=== PATIENT | female | born 1955 | race Caucasian/White ===

== ENCOUNTER 2016-08-04 08:18 | Inpatient (IN) | payer OTHER ==
[~2016-08-04 08:18] MED LIST: BUPIVACAINE 0.5% 30 ML SDV ONE; ceFAZolin 2 GM/DEXTROSE 100 ML IV ONE
[2016-08-04] MEDS ORDERED: LIDOCAINE 1% 5 ML SDV ONE (09:04)
[2016-08-04] MEDS ORDERED: CEFAZOLIN 2 GM/DEXTROSE/100 ML BAG IV ONE (09:05)
[2016-08-04] MEDS ORDERED: LIDOCAINE 1% 5 ML SDV ID PRN (09:14)
[2016-08-04] MEDS ORDERED: LR 1,000 ML IV ONE (09:14)
[2016-08-04] MEDS ORDERED: PROPOFOL/EMULSION 500 MG/50 ML BOTTLE IV ONE ×2 (09:36→12:15)
[2016-08-04] MEDS ORDERED: fentaNYL 250 MCG/5 ML INJ ONE (09:36)
[2016-08-04] MEDS ORDERED: ROCURONIUM 50 MG/5 ML VIAL ONE ×3 (09:38→13:17)
[2016-08-04] MEDS ORDERED: MIDAZOLAM 2 MG/2 ML VIAL ONE ×3 (10:11→12:31)
[2016-08-04] MEDS ORDERED: SKIN ADHESIVE (DERMABOND) 1 EACH TP ONE ×2 (10:30→12:47)
--- NOTE | 2016-08-04 12:49 | POSTOPPROG ---
Post Op Note Date of Operation: 08/04/16 Surgeon: Daisy Brooks Intelligence Chief: carlita Anesthesiologist: coleman Anesthesia: GET(General Endotracheal) Pre-op Diagnosis: ILD Post-op Diagnosis: same Indication: 61yo F with interstitial lung dz Procedure: R VATS wedge bx RUL Findings: none unusual Inf/Abcess present in the surg proc area at time of surgery?: No Depth: Organ Space EBL: Minimal Complications: none immediately postop Drains: Other (pleuravac) Specimen(s): lung for micro and path
[2016-08-04] MEDS ORDERED: diphenhydrAMINE 25 MG CAP PO PRN ×2 (12:51→14:15)
[2016-08-04] MEDS ORDERED: ONDANSETRON DISINTEGRATING 4 MG TAB PO PRN (12:51)
[2016-08-04] MEDS ORDERED: ONDANSETRON 4 MG/2 ML VIAL IVP PRN ×2 (12:51→14:15)
[2016-08-04] MEDS ORDERED: ACETAMINOPHEN 325 MG TAB PO PRN (12:51)
[2016-08-04] MEDS ORDERED: BUPIVACAINE/EPI 0.25% 30 ML SDV ONE (12:51)
[2016-08-04] MEDS ORDERED: BUPIVACAINE 0.25% 30 ML SDV ONE (12:52)
[2016-08-04] MEDS ORDERED: METHOCARBAMOL 750 MG TAB PO PRN (12:52)
[2016-08-04] MEDS ORDERED: ONDANSETRON 4 MG/2 ML VIAL ONE ×4 (12:52→13:17)
[2016-08-04] MEDS ORDERED: SUGAMMADEX SODIUM 200 MG/2 ML VIAL IVP ONE ×2 (12:53→13:17)
[2016-08-04] MEDS ORDERED: BUPIVACAINE/DEXTROSE 7.5MG SPINAL AMP SP ONE (12:58)
[2016-08-04] MEDS ORDERED: NON-FORMULARY NEW DRUG (Estradiol [Vagifem] 10 MCG) VG SCH (13:00)
[2016-08-04] MEDS ORDERED: BUPIVACAINE 0.5% 30 ML SDV ONE (13:00)
[2016-08-04] MEDS ORDERED: NS 1,000 ML IV SCH (13:00)
[2016-08-04] MEDS ORDERED: DEXAMETHASONE 4 MG/ML VIAL ONE ×3 (13:17)
[2016-08-04] MEDS ORDERED: fentaNYL 100 MCG/2 ML INJ ONE (13:40)
[2016-08-04] MEDS ORDERED: MEPERIDINE 25 MG/ML SYR ONE (13:45)
[2016-08-04] MEDS ORDERED: HYDROmorph 10MCG/ML&BUP 0.1% in 100ML NS EP SCH (14:15)
[2016-08-04] MEDS ORDERED: NALOXONE HCL 0.4 MG/ML INJ IVP PRN (14:15)
[2016-08-04] MEDS ORDERED: NARCOTIC DRIP BAG-TOTAL ALL TYPES EP PRN (14:15)
[2016-08-04] MEDS: LOSARTAN POTASSIUM 50 MG TAB PO SCH (17:37)
[2016-08-04] MEDS ORDERED: NON-FORMULARY NEW DRUG (Losartan Potassium [Cozaar] 100 MG) PO SCH (18:00)
[2016-08-04] MEDS ORDERED: CEPACOL LOZENGE PO PRN (18:25)
[2016-08-04] MEDS: HYDROCODONE/APAP 5/325 TAB PO PRN (19:48)
[2016-08-04] MEDS: ASPIRIN EC 81 MG TAB PO SCH (20:55)
[2016-08-04] MEDS: ZOLPIDEM TARTRATE 5 MG TAB PO SCH (20:55)
[2016-08-04] MEDS ORDERED: NON-FORMULARY NEW DRUG (Zolpidem Tartrate [Ambien 10 Mg] 10 MG) PO SCH (21:00)
[2016-08-05 05:04] LABS: % IMMATURE GRANULYOCYTES 0.3 % (0.0-1.1); ABSOLUTE IMMATURE GRANULOCYTES 0.03 10^3/uL (0.00-0.10); ADD DIFF? NO; ADD MORPH? NO; ADD SCAN? NO; ATYPICAL LYMPHOCYTE FLAG 0 (0-99); FRAGMENT RBC FLAG 10 (0-99); HEMATOCRIT 37.5 % (38.0-47.0); HEMOGLOBIN 12.8 g/dL (12.6-16.3); LEFT SHIFT FLG 0 (0-99); LIPEMIA HEMOLYSIS FLAG 90 (0-99); MEAN CELL HEMOGLOBIN 30.5 pg (27.9-34.1); MEAN CELL HEMOGLOBIN CONCENTR. 34.1 g/dL (32.4-36.7); MEAN CELL VOLUME 89.3 fL (81.5-99.8); MEAN PLATELET VOLUME 10.7 fL (8.7-11.7); PLATELET CLUMPS FLAG 20 (0-99); PLATELET COUNT 240 10^3/uL (150-400); RED CELL DISTRIBUTION WIDTH 12.1 % (11.5-15.2)
[2016-08-05] MEDS: HYDROCODONE/APAP 5/325 TAB PO PRN ×2 (05:07→08:36)
[2016-08-05 05:19] LABS: ANION GAP 9 mEq/L (8-16); CALCIUM 9.1 mg/dL (8.5-10.4); CARBON DIOXIDE 22 mEq/l (22-31); CHLORIDE 107 mEq/L (97-110); CREATININE 0.9 mg/dL (0.6-1.0); GLOMERULAR FILTRATION RATE > 60; GLUCOSE 138 mg/dL (70-100); POTASSIUM 4.8 mEq/L (3.5-5.2); SODIUM 138 mEq/L (134-144)
[2016-08-05] MEDS ORDERED: DC NARCS MISC SCH (09:00)
[2016-08-05] MEDS ORDERED: REGARDING ANTICOAG MISC SCH (09:00)
--- NOTE | 2016-08-05 11:54 | POSTANESTH ---
Post Anesthetic Evaluation Cardiovascular Status: Normal, Stable Respiratory Status: Tx Decrease in SpO2 Level of Consciousness/Mental Status: Can Participate in Eval Pain Control: Adequate, Prn Tx Ordered Nausea/Vomiting Control: Adequate, Prn Tx Ordered Complications Possibly Related to Anesthesia: Other, See Comments (Sore throat improved. Pain increased at 0200 hours. Patient noted epidural gave good pain control. Surgeon recommended epidural removal. Epidural removed intact. Bandaid placed.)
--- NOTE | 2016-08-05 12:14 | SOAPPROG ---
SOAP Progress Note Assessment/Plan: Assessment/Plan POD#1 s/p R VATs Bx - pain has been issue, doesnt appear well controlled on [place], have switched to oxycodone. Epidural removed this AM per Dr Ramirez. - OOBTC, ambulate and wean O2 with aggressive IS and ambulation - CXR shows miniscule ptx, resolving. Will watch - Port and CT sites c/d/i, ok to shower - Anticipate one more day to work on pain control. Hopefully home tomorrow 08/05/16 12:12 Subjective: Feels ok, has pain with movement. Tolerating diet. Objective: Vital Signs Temp Pulse Resp BP Pulse Ox 36.1 C 52 L 18 100/63 95 08/05/16 09:20 08/05/16 09:20 08/05/16 09:20 08/05/16 09:20 08/05/16 09:20 Microbiology 08/04/16 12:38 Gram Stain - Final Lung - Tissue Laboratory Results 08/05/16 04:49 08/05/16 04:49 08/04/16 08/05/16 08/06/16 05:59 05:59 05:59 Intake Total 2300 Output Total 24 Balance 2276 ICD10 Worksheet Patient Problems: Problems Problem Status Onset Interstitial lung disease Acute - ICD10 Problem Qualifiers (1) Interstitial lung disease
[2016-08-05] MEDS: oxyCODONE IR 5 MG TAB PO PRN ×3 (12:36→20:59)
[2016-08-05] MEDS: IBUPROFEN 600 MG TAB PO PRN (12:36)
[2016-08-05] MEDS: LOSARTAN POTASSIUM 50 MG TAB PO SCH (17:44)
[2016-08-05] MEDS: ZOLPIDEM TARTRATE 5 MG TAB PO SCH (20:58)
[2016-08-05] MEDS: ASPIRIN EC 81 MG TAB PO SCH (20:59)
[2016-08-06] MEDS: oxyCODONE IR 5 MG TAB PO PRN ×3 (01:04→08:57)
[2016-08-06] MEDS: IBUPROFEN 600 MG TAB PO PRN (08:56)
[2016-08-06 09:26] VITALS: BP 103/64; PULSE 62; RESP 16; TEMP 98.1; O2SAT 85
--- NOTE | 2016-08-06 09:40 | GDS ---
DISCHARGE DIAGNOSES: 1. Interstitial lung disease. 2. Postoperative pulmonary insufficiency. HOSPITAL COURSE: The patient was admitted on the for her elective procedure. She was taken to the operating room, where she underwent an uneventful video-assisted thoracoscopic wedge biopsy of her right lung. She was subsequently taken to the PACU and then to the general medical floor. She had a chest tube which was discontinued on the day of surgery. A repeat chest film a day later show ed complete resolution of a tiny pneumothorax that was there previously. Her pain was initially wel l controlled with an epidural. This was removed on postoperative day 1. She was transitioned to or al oxycodone. Her diet was advanced to a regular diet which was well tolerated on day of discharge. PHYSICAL EXAM: GENERAL: On day of discharge, she is alert and oriented. LUNGS: Clear. Her chest tube site is covered with a clean dressing. Her operative sites are covered with Dermabond are ian an, dry, and intact. ABDOMEN: Soft and nondistended. EXTREMITIES: Warm and well-perfused. DISCHARGE MEDICATIONS: Please see med rec for full discharge med reconciliation. The new medicine she was given today was oxycodone IR as needed for pain. She was also sent home on oxygen, as she w as unable to successfully wean at time of discharge. DISPOSITION: She will go home. She will follow up with her primary care physician next week to ass ess her continued need for home O2. She will follow up with her operative surgeon, Dr. Brooks, in 7- 10 days for a routine postoperative visit. /[id number]/MODL
== END 2016-08-06 11:36 | disposition home or self-care (01) | DRG 168 ==
LOC: F3E 08:18 → F1N 16:40
PROVIDERS: ADMIT Surgery; ATTEND Surgery
PROC: 0W9940Z Drainage of Right Pleural Cavity with Drainage Device, Percutaneous Endoscopic Approach (ICD-10-PCS; principal; 2016-08-04 11:00)
PROC: 0BBC4ZX Excision of Right Upper Lung Lobe, Percutaneous Endoscopic Approach, Diagnostic (ICD-10-PCS; principal; 2016-08-04 11:00)
DX: J84.9 Interstitial pulmonary disease, unspecified (principal); Z87.891 Personal history of nicotine dependence
CPT/HCPCS: J0690; J1100; J1170; J2250; J2405; J2704; J3010

== ENCOUNTER → 2016-08-15 | Outpatient (CLI) | payer OTHER | LOC: FIMAGING 11:34 | PROVIDERS: ATTEND Surgery | DX: J98.11 Atelectasis (principal); J84.9 Interstitial pulmonary disease, unspecified ==

== ENCOUNTER → 2017-05-28 | Outpatient (CLI) | payer OTHER | LOC: CIMAGING 09:53 | PROVIDERS: ATTEND Internal Medicine | DX: Z12.31 Encounter for screening mammogram for malignant neoplasm of breast (principal); Z80.3 Family history of malignant neoplasm of breast | CPT/HCPCS: G0202 ==

== ENCOUNTER 2017-10-22 07:12 | Day surgery (SDC) | payer OTHER ==
[2017-10-22] MEDS ORDERED: LIDOCAINE 1% 2 ML INJ ID PRN (07:32)
[2017-10-22] MEDS ORDERED: LR 1,000 ML IV ONE (07:32)
--- NOTE | 2017-10-22 08:58 | PDANEPAE ---
ANE History of Present Illness h/o polyps ANE Past Medical History - Cardiovascular History Hx Hypertension: Yes Hx Arrhythmias: No Hx Chest Pain: No Hx Coronary Artery / Peripheral Vascular Disease: No Hx CHF / Valvular Disease: No Hx Palpitations: No Cardiovascular History Comment: HIGH CHOL - Pulmonary History Hx COPD: No Hx Asthma/Reactive Airway Disease: No Hx Recent Upper Respiratory Infection: No Hx Oxygen in Use at Home: No Hx Sleep Apnea: Yes Sleep Apnea Screening Result - Last Documented: Positive Pulmonary History Comment: CAN DO 2 FLTS STAIRS W/O SOB. INTERSTITIAL LUNG DX. CHRONIC COUGH. POS SLEEP APNEA - CPAP TRIAL X 6 MOS - Neurologic History Hx Cerebrovascular Accident: No Hx Seizures: No Hx Dementia: No Neurologic History Comment: LOW BACK PAIN - Endocrine History Hx Diabetes: No - Renal History Hx Renal Disorders: No - Liver History Hx Hepatic Disorders: No - Neurological & Psychiatric Hx Hx Neurological and Psychiatric Disorders: No - Cancer History Hx Cancer: No - Congenital Disorder History Hx Congenital Disorders: No - GI History Hx Gastrointestinal Disorders: Yes Gastrointestinal History Comment: POLYPS REM - Other Health History Other Health History: LUNG SCAN- REC BRONCHOSOPY - Chronic Pain History Chronic Pain: Yes (LOW BACK PAIN & HIP & SHOULDER) - Surgical History Prior Surgeries: CATARACTS RECENT 04/2017. ORAL SURGER. LUNG BIOPSY. TONSILS. BRONCHOSCOPY. WISDOM TEETH. BREAST REDUCTION. X2 REM FIBROIDS. PART HYST. TOOTH IMPLANT W BONE GRAFT ANE Review of Systems Review of Systems: - Exercise capacity METS (RN): 4 METS ANE Patient History - Allergies Allergies/Adverse Reactions: fluticasone Allergy (Mild, Verified 08/04/16 09:18) GUTIERREZ NARES hydrochlorothiazide Allergy (Verified 10/08/17 11:32) Hives ENVIRONMENTAL Allergy (Mild, Uncoded 02/08/15 15:11) SNEEZE, ITCHY EYES, RUNNY NOSE - Home Medications Home Medications: RX: Ascorbic Acid [Vitamin C 500 mg (*)] 500 mg PO HS 07/25/16 [Last Taken 10/15] RX: Aspirin EC [Aspirin EC 81 mg (*)] 81 mg PO HS 07/25/16 [Last Taken 10/15/17] RX: Cholecalciferol Vit D3 [Vitamin D3 2000 units tab (OTC)] 5,000 units PO DAILY 07/25/16 [Last Taken 10/15/17] RX: Estradiol [VAGIFEM] 10 mcg VG TUFR 07/25/16 [Last Taken 10/18/17] RX: Herbals/Supplements -Info Only 1 ea PO DAILY 07/25/16 [Last Taken 10/15/17] RX: Hydrocodone/Acetaminophen [[place] 5/325 (*)] 1 each PO Q4 PRN 07/25/16 [Last Taken 10/15/17] RX: Losartan Potassium [Cozaar] 100 mg PO DAILY@18 07/25/16 [Last Taken 10/21/17 ] RX: Methocarbamol [Robaxin 750 mg (*)] 750 mg PO BID PRN 07/25/16 [Last Taken ] RX: Multivitamins [Multivitamin (*)] 1 each PO DAILY 07/25/16 [Last Taken ] RX: [place]-3 Fatty Acids [Fish Oil 1000 mg (*)] 1,000 mg PO BID 07/25/16 [Last Taken 10/15/17] RX: Zolpidem Tartrate [Ambien 10 mg] 10 mg PO HS 07/25/16 [Last Taken 10/20/17] - NPO status NPO Since - Liquids (Date): 10/21/17 NPO Since - Liquids (Time): 23:00 NPO Since - Solids (Date): 10/21/17 NPO Since - Solids (Time): 09:00 - Smoking Hx Smoking Status: Former smoker - Family Anes Hx Family Hx Anesthesia Complications: NONE ANE Labs/Vital Signs - Vital Signs Blood Pressure: 163/96 Heart Rate: 87 Respiratory Rate: 14 O2 Sat (%): 91 Height: 172.72 cm Weight: 124.738 kg ANE Physical Exam - Airway Neck exam: FROM Mallampati Score: Class 1 Mouth exam: normal dental/mouth exam - Pulmonary Pulmonary: no respiratory distress - Cardiovascular Cardiovascular: regular rate and rhythym - ASA Status ASA Status: III ANE Anesthesia Plan Total IV Anesthesia: Yes
--- NOTE | 2017-10-22 09:37 | PDGENHP ---
History & Physical Chief Complaint: phx polyps, fhx mother cc asge < 60 History of Present Illness: phx polyps. fhx colon cancer Pertinent Past, Social, Family History: fhx mom with cc age 50's. social = alcohol rare, no tobacco Relevant Physical Exam: A+Ox3. CTA. S1S2, RRRR. +BS, soft nt Cardiorespiratory Assessment: class 3
[2017-10-22] MEDS ORDERED: PROPOFOL/EMULSION 500 MG/50 ML BOTTLE IV ONE (09:39)
[2017-10-22] MEDS ORDERED: NALOXONE HCL 0.4 MG/ML INJ IVP PRN (09:46)
[2017-10-22] MEDS ORDERED: PROPOFOL 200 MG/20 ML VIAL ONE (10:03)
--- NOTE | 2017-10-22 10:12 | POSTANESTH ---
Post Anesthetic Evaluation Cardiovascular Status: Normal, Stable Respiratory Status: Normal, Stable Level of Consciousness/Mental Status: Can Participate in Eval Pain Control: Adequate, Prn Tx Ordered Nausea/Vomiting Control: Adequate, Prn Tx Ordered Complications Possibly Related to Anesthesia: None Noted
--- NOTE | 2017-10-22 10:54 | GIREPORT ---
[facility] Surgical Services - Endoscopy Department Patient Name: Viola Sandhu Procedure Date: 10/22/2017 8:55 AM Patient Type: Outpatient Attending MD/ ER Physician: Mihir Bonds Procedure: Colonoscopy Indications: High risk colon cancer surveillance: Personal history of non-advanced adenoma, High risk colon cancer surveillance: Personal history of adeno ma less than 10 mm in size, Family history of colon cancer in a first-degr ee relative Providers: Micky Bella MD Referring MD: Ailyn Roland MD Medicines: Total IV Anesthesia (TIVA) = IV general w/o airway Complications: No immediate complications. Description of Procedure: After obtaining informed consent, the scope was passed under direct vis ion. Throughout the procedure, the patient's blood pressure, pulse, and oxyg en saturations were monitored continuously. The Colonoscope with irrigatio n channel was introduced through the anus and advanced to the terminal il eum, with identification of the appendiceal orifice and IC valve. The colono scopy was performed without difficulty. The patient tolerated the procedure w ell. The quality of the bowel preparation was good except the ascending colo n was fair. Findings: The digital rectal exam was normal. Pertinent negatives include normal stool Hemoccult. The terminal ileum appeared normal. Many medium-mouthed diverticula were found in the sigmoid colon, descen ding colon and distal transverse colon. The exam was otherwise without abnormality. Estimated Blood Loss: Estimated blood loss: none. Post Op Diagnosis: - The examined portion of the ileum was normal. - Diverticulosis in the sigmoid colon, in the descending colon and in t he distal transverse colon. - The examination was otherwise normal. - No specimens collected. Recommendation: - High fiber diet indefinitely. - 30-35 grams of dietary fiber per day. Can use supplemental fiber. - A high fiber diet may decrease risk of complications from diverticulo sis. There is no need to avoid seeds or nuts. - Repeat colonoscopy in 5 years for surveillance. - Patient has a contact number available for emergencies. The signs and symptoms of potential delayed complications were discussed with the pat ieean. Return to normal activities tomorrow. Written discharge instructions we re provided to the patient. - Continue present medications. - Discharge patient to home (ambulatory). - Return to primary care physician as previously scheduled. - Thank you for allowing me to help in your patient's care. Do not hesi andrade to call with any questions. Attending Participation: I personally performed the entire procedure. Shayne Weeks M.D Micky Bella MD 10/22/2017 10:54:33 AM This report has been signed electronicallyMathedarryn Bella MD Number of Addenda: 0 Note Initiated On: 10/22/2017 8:55 AM Total Procedure Duration Time 0 hours 18 minutes 43 seconds [email or web address]
[2017-10-22 11:09] VITALS: BP 146/97
== END 2017-10-22 11:20 | disposition home or self-care (01) ==
LOC: FSGY 07:12
PROVIDERS: ATTEND Internal Medicine Gastroenterology
PROC: 0DJD8ZZ Inspection of Lower Intestinal Tract, Via Natural or Artificial Opening Endoscopic (ICD-10-PCS; principal; 2017-10-22 09:00)
DX: K57.30 Diverticulosis of large intestine without perforation or abscess without bleeding (principal); Z86.010 Personal history of colon polyps; Z80.0 Family history of malignant neoplasm of digestive organs
CPT/HCPCS: J2704

== ENCOUNTER → 2018-05-29 | Outpatient (CLI) | payer OTHER | LOC: CIMAGING 10:42 | PROVIDERS: ATTEND Internal Medicine | DX: Z12.31 Encounter for screening mammogram for malignant neoplasm of breast (principal); Z80.3 Family history of malignant neoplasm of breast ==